=== PATIENT | female | born 1945 | race African-American/Black ===

== ENCOUNTER → 2024-01-02 14:29 | Outpatient (REF) | payer MEDICARE, OTHER, SELFPAY | LOC: WDC 14:29 | PROVIDERS: ATTENDING PHYSICIAN Physician Assistant | DX: Z12.31 Encounter for screening mammogram for malignant neoplasm of breast (principal) | CPT/HCPCS: 77063; 77067 ==

== ENCOUNTER → 2025-01-07 13:33 | Outpatient (REF) | payer MEDICARE, OTHER, SELFPAY | LOC: WDC 13:33 | PROVIDERS: ATTENDING PHYSICIAN Nurse Practitioner Family | DX: Z12.31 Encounter for screening mammogram for malignant neoplasm of breast (principal) | CPT/HCPCS: 77063; 77067 ==

== ENCOUNTER → 2025-05-02 12:53 | Outpatient (REF) | payer MEDICARE, OTHER, SELFPAY | LOC: HWRAD 12:53 | PROVIDERS: ATTENDING PHYSICIAN Nurse Practitioner Family | DX: R51.9 Headache, unspecified (principal) | CPT/HCPCS: 70450 ==